=== PATIENT | female | born 1985 | race Caucasian/White ===

== ENCOUNTER 2018-11-12 23:01 | Emergency (ER) | payer SELFPAY ==
[~2018-11-12] VITALS: Ht 162.6 cm; Wt 49.2 kg
[2018-11-12 23:20] VITALS: Ht 162.6 cm; Wt 49.2 kg
[2018-11-13 00:57] VITALS: BP 119/69
== END 2018-11-13 00:57 | disposition home or self-care (01) ==
LOC: ED 23:01
DX: S01.111A Laceration without foreign body of right eyelid and periocular area, initial encounter (principal); W22.8XXA Striking against or struck by other objects, initial encounter; Y93.B3 Activity, free weights; Y92.89 Other specified places as the place of occurrence of the external cause; Y99.8 Other external cause status
CPT/HCPCS: J2001